=== PATIENT | female | born 1990 | race Two or more races ===

== ENCOUNTER 2025-02-26 09:17 | Emergency (ER) | payer MEDICAID, SELFPAY ==
[2025-02-26 09:27] VITALS: BP 114/74; PULSE 86; RESP 16; TEMP 37.2; O2SAT 98; BMI 27.6
--- NOTE | 2025-02-26 09:44 | XR_ITS ---
Examination: Pelvic ultrasound, transabdominal, complete Technique: Transabdominal ultrasound of the pelvis performed using grayscale imaging Date and time of exam: February 26, 2025 1033 hrs. Indications: Pelvic pain beginning one week ago Findings: Uterus 12.1 cm endometrial stripe 1.5 cm No uterine mass or intrauterine gestation Right ovary 2.9 cm arterial flow Left ovary 2.9 cm arterial flow Small bilateral ovarian follicles Impression: No uterine mass or intrauterine gestation Negative for ovarian torsion
--- NOTE | 2025-02-26 09:59 | PD.EDRME ---
Rapid Medical Screening Exam RME Arrival date/time: 02/26/25 09:17 34-year-old female presents to the Emergency Department today for complaints of pelvic pain Chief Complaint: Abdominal Pain Time Seen by Provider: 02/26/25 09:37 Vital signs: Vital Signs Temperature 99 F 02/26/25 09:27 Pulse Rate 86 02/26/25 09:27 Respiratory Rate 16 02/26/25 09:27 Blood Pressure 114/74 02/26/25 09:27 Pulse Oximetry (%) 98 02/26/25 09:27 Oxygen Delivery Method Room Air 02/26/25 09:27
[2025-02-26 10:23] LABS: Basophils % (Auto) 0 % (0-2.5); Eosinophils # (Auto) 0.2 Thou/mm3 (0.0-0.5); Eosinophils % (Auto) 2 % (0-10); Hematocrit 43.2 % (36.0-46.0); Hemoglobin 14.6 g/dL (12.0-16.0); Immature Granulocytes % (Auto) 0 % (0-0); Immature Granulocytes Auto 0.01 Thou/mm3 (0.00-0.00); Lymphocytes # (Auto) 1.5 Thou/mm3 (1.0-4.8); Lymphocytes % (Auto) 24 % (10-50); Mean Corpuscular HGB Conc 33.8 g/dl (31.0-37.0); Mean Corpuscular Hemoglobin 31.7 pg (25.0-35.0); Mean Corpuscular Volume 94 fL (80-100); Monocytes # (Auto) 0.3 Thou/mm3 (0.0-0.8); Monocytes % (Auto) 5 % (0-12); Neutrophils # (Auto) 4.4 Thou/mm3 (1.8-7.7); Neutrophils % (Auto) 69 % (37-80); Nucleated Red Blood Cell % 0 /100 WBC (0); Platelet Count 230 Thou/mm3 (140-440); RDW Standard Deviation 42.5 fL (36.4-46.3); White Blood Count 6.4 Thou/mm3 (3.6-11.0)
[2025-02-26 10:41] LABS: Alanine Aminotransferase 29 U/L (10-49); Albumin, Serum 4.4 gm/dL (3.5-5.0); Albumin/Globulin Ratio 1.4 (1.2-2.2); Alkaline Phosphatase 95 U/L (46-116); Anion Gap 6 (7-16); Aspartate Amino Transferase 14 U/L (0-34); BUN/Creatinine Ratio 13 Ratio (12-20); Bilirubin,Total 0.5 mg/dL (0.3-1.2); Blood Urea Nitrogen 12 mg/dL (9-23); Calcium 9.8 mg/dL (8.3-10.6); Calcium (Corrected) 9.8 mg/dL (8.5-10.1); Carbon Dioxide 29.2 mMol/L (20.0-31.0); Chloride 109 mMol/L (98-107); Creatinine (Component) 0.9 mg/dL (0.6-1.3); Estimated Creatinine Clearance 91.1 mL/min (>60); Globulin 3.2 gm/dL (2.3-3.5); Glucose 145 mg/dL (74-106); Lipase 39 U/L (12-53); Osmolality,Calculated 289 (275-295); Potassium 3.5 mMol/L (3.4-5.1); Sodium 144 mMol/L (136-145); Total Protein 7.6 gm/dL (5.7-8.2); eGFR > 60 See Note
[2025-02-26 11:05] LABS: Collection Type, Urine Clean Catch
[2025-02-26 11:13] LABS: HCG Qualitative,Urine Negative
[2025-02-26 11:16] LABS: Bacteria,Urine Rare; Bilirubin,Urine Negative (Negative); Blood,Urine 3+ (Negative); Glucose, Urine Negative (Negative); Ketones,Urine Negative (Negative); Leukocyte Esterase,Urine Positive (Negative); Nitrite,Urine Negative (Negative); PH,Urine 6.5 (5.0-7.0); Protein,Urine 1+ (Neg - Trace); RBC,Urine 1033 /hpf (0-3); Specific Gravity,Urine 1.009 (1.001-1.035); Squamous Epithelial Cell,Urine 9 /hpf (0-5); Urobilinogen,Urine Negative mg/dL (0.0-1.0); WBC,Urine 23 /hpf (0-5)
[2025-02-26 11:18] LABS: Clarity,Urine Cloudy (Clear/Hazy); Color,Urine Lt-Red (Lt Yel-Yel); Culture Indicated,Urine Yes
[2025-02-26 11:50] VITALS: BP 148/90; PULSE 65; RESP 18; TEMP 37; O2SAT 99
[2025-02-26 13:19] VITALS: BP 139/96; PULSE 64; RESP 17; TEMP 36.7; O2SAT 98
--- NOTE | 2025-02-26 13:51 | PD.EDABDPN ---
ED Abdominal Pain RME/HPI General Chief Complaint: Abdominal Pain Stated complaint: ABD PAIN RADIATES TO BACK X 7 WEEK Time seen by provider: 02/26/25 09:37 Arrival date/time: 02/26/25 09:17 RME / HPI RME / HPI narrative: 34-year-old female presents to the Emergency Department today for complaints of pelvic pain this been ongoing for the last 7 weeks, getting worst for last 4 days with menstruation. Patient denies any dysuria denies any vomiting denies any fever denies any other complaints. Related Data Home Medications ?Medication ?Instructions ?Recorded ?Confirmed ferrous sulfate 325 mg (65 mg 325 mg PO QDAY 12/23/19 02/16/20 iron) tablet folic acid 0.8 mg capsule 0.8 mg PO QDAY 12/23/19 02/16/20 hydrocodone 5 mg-acetaminophen 325 1 tab PO Q6H PRN Pain 12/23/19 02/16/20 mg tablet ([place]) vitamins-iron fumarate 27 1 tab PO QDAY 12/23/19 02/16/20 mg iron-folic acid 0.8 mg tablet ( Vitamin) phenazopyridine 100 mg tablet 100 mg PO TID PRN BURNING 02/16/20 02/17/20 Previous Rx's ?Medication ?Instructions ?Recorded ketorolac 10 mg tablet 10 mg PO Q8H PRN pain 5 days #20 02/26/25 tabs Allergies Allergy/AdvReac Type Severity Reaction Status Date / Time No Known Allergies Allergy Verified 02/26/25 09:21 Review of Systems Review of Systems Narrative Review of Systems: Review of system reviewed and within normal limits except mentioned in HPI ED Exam Narrative Physical exam: VITAL SIGNS: Reviewed. GENERAL APPEARANCE: Alert and interactive, follows commands, no acute distress, HEAD AND FACE: Non-traumatic. ENT: PERRL, pink conjunctivitis, eyelid no trauma, Mucous membrane moist. NECK: Supple, nontender, no nuchal rigidity. CHEST: No tenderness, no crepitus, no paradoxical movement, no retractions. LUNGS: Clear, well ventilated, symmetric, no rales, no wheezing, no ronchi, no stridor, good breath sounds bilaterally. HEART: Regular rate, regular rhythm, no murmur, no gallops. ABDOMEN: Soft, positive bowel sounds, nondistended, no guarding, nontender, no rebound, no masses, RECTAL: Deferred. GENITAL: Deferred. NEUROLOGICAL: Gross motor function intact sensory function intact, Appropriate for age. MUSCULOSKELETAL: low back nontender, full range of motion. EXTREMITIES: Nontender, full range of motion. SKIN: Color pink, dry, no rash, no lacerations, no abrasions, no contusions. LYMPHATICS: Deferred. Course Quality Measures none Orders Category Date Time Status US pelvic complete Stat Exams 02/26/25 09:44 Completed CBC Stat Lab 02/26/25 10:09 Completed Comprehensive Metabolic Panel Stat Lab 02/26/25 10:09 Completed HCG Qualitative,Urine Stat Lab 02/26/25 10:58 Completed Lipase Stat Lab 02/26/25 10:09 Completed UA, C/S IF [Urinalysis, C/S if Indicated] Stat Lab 02/26/25 10:58 Completed Urine Culture Stat Lab 02/26/25 10:58 Received Vital Signs Vital signs: Vital Signs Temperature 99 F 02/26/25 09:27 Pulse Rate 86 02/26/25 09:27 Respiratory Rate 16 02/26/25 09:27 Blood Pressure 114/74 02/26/25 09:27 Pulse Oximetry (%) 98 02/26/25 09:27 Oxygen Delivery Method Room Air 02/26/25 09:27 Abdominal Pain [facility] Narrative [facility] Narrative:: 34-year-old female presents to the Emergency Department today for complaints of pelvic pain this been ongoing for the last 7 weeks, getting worst for last 4 days with menstruation. Patient denies any dysuria denies any vomiting denies any fever denies any other complaints. Patient's ultrasound of the pelvis came back unremarkable but workup also came back unremarkable except for hematuria as patient is having menstruation right now. Patient symptoms could be secondary to dysmenorrhea. Patient was advised to follow-up closely with PCP and for referral to [facility]. Patient agrees with the plan. Patient data External records reviewed:: None Clinical information provided by:: patient Social determinants that could affect healthcare access:: none Patient has the following chronic illnesses:: None How is presenting disease/condition affected by chronic disease/condition?: no chronic disease Evaluation data The following diagnostics were reviewed and interpreted by me:: lab results and radiology exam(s) Lab and/or radiology exams considered but not ordered:: None Interpretation Summary: See results MDM Medications / Prescriptions Medications or Prescriptions considered but not ordered:: None Medication administrations:: None Consultations Consultation(s) initiated? (list below): No Diagnosis Differential diagnosis abdominal pain: abdominal pain, constipation and other (Dysmenorrhea) Most likely diagnosis given after review of the tests above:: Dysmenorrhea Admission Indicated Admission indicated?: not indicated Admission Request Was there a request for admission?: No Disposition Plan Disposition Plan: Discharge Discharge Attestation Discharge Attestation: The patient was given an opportunity to ask questions and understood the discharge instructions. Discharge instructions specifically effects, indications for sooner follow up or return to the emergency department, and the expected course of current diagnosis. Patient condition: Stable Discharge Plan Plan Patient Disposition: HOME (Self Care) Disposition Comment: stable Prescriptions/Referrals Prescriptions/Med Rec: New ketorolac 10 mg tablet 10 mg PO Q8H PRN (Reason: pain) 5 Days Qty: 20 0RF No Action hydrocodone-acetaminophen [[place]] 5-325 mg Tablet 1 tab PO Q6H PRN (Reason: Pain) ferrous sulfate 325 mg (65 mg iron) Tablet 325 mg PO QDAY Vitamin 27 mg iron- 0.8 mg Tablet 1 tab PO QDAY folic acid 0.8 mg Capsule 0.8 mg PO QDAY phenazopyridine 100 mg Tablet 100 mg PO TID PRN (Reason: BURNING) Rx Instructions: DYSURIA Referrals: Rossana Benitez FNP [Primary Care Provider] - In 1 week Problem List Clinical Impression: Dysmenorrhea Patient/Caregiver Discharge Instructions Discharge Activity: activity as tolerated Education Materials: ED MENSTRUAL CRAMPING Additional Instructions: Thank you for the opportunity for serving you today. You are stable for discharged . You are advised to: Follow-up with your PCP in 1 to 2 days and as per referral to [facility] Return to ED for worsening of symptoms Increase oral fluids Take medication as prescribed Print Language: Azeri Stand Alone Forms: Donna Award Info., Patient Portal Info Letter
== END 2025-02-26 14:05 | disposition home or self-care (01) ==
PROVIDERS: Nurse Practitioner Primary Care; Emergency Provider Emergency Medicine; PCP Nurse Practitioner Family
DX: N94.6 Dysmenorrhea, unspecified (principal)
CPT/HCPCS: 36415; 76856; 80053; 81001; 81025; 83690; 85025; 87077; 87086; 87186; 99284

== ENCOUNTER 2025-06-14 16:03 | Emergency (ER) | payer MEDICAID, SELFPAY ==
[2025-06-14 16:08] VITALS: BMI 28.3
[2025-06-14 16:57] VITALS: BP 112/75; PULSE 84; RESP 18; TEMP 36.8; O2SAT 99
--- NOTE | 2025-06-14 17:29 | XR_ITS ---
Examination: Complete OB ultrasound, less than 14 weeks, transabdominal Date and time of exam: June 14, 2025, 1739 hours INDICATIONS: Pelvic pain beginning 2 days ago Technique: Obstetrical ultrasound images less than 14 weeks performed via transabdominal imaging Findings: Uterus 12.4 cm CRL 8.8 cm corresponds to 14 weeks 5 day gestational age No cardiac motion Right ovary 2.9 cm arterial flow Left ovary obscured by bowel gas IMPRESSION: demise
--- NOTE | 2025-06-14 17:39 | EDNOTE_ITS ---
ED Abdominal Pain RME/HPI General Chief Complaint: Abdominal Pain Stated complaint: ABD/BACK PAIN; PREG W/ DEMISE Time seen by provider: 06/14/25 17:07 Arrival date/time: 06/14/25 16:03 RME / HPI RME / HPI narrative: 3 para 2, 34-year-old female presents to the ED with a complaint of lower left abdominal pain and lower back pain bilaterally. She states she is between 2 to 3 months and at her last doctor's appointment, during an ultrasound, she was told there was no heartbeat. She presents to the ED with these new symptoms that began last night. She states the pain is constant but worse when she lays flat in bed. She denies any spotting or bleeding. She denies any recent illness with fever, chills, cough, upper respiratory complaints, nausea or vomiting, diarrhea or constipation. She denies any dysu edda or frequency. Patient's doctor is Dr. Soto at [facility] in [place]. She is waiting for a call from Dr. Singleton to schedule an appointment for her fetus removal. She states they were supposed to call her today or tomorrow. Related Data Home Medications ?Medication ?Instructions ?Recorded ?Confirmed ferrous sulfate 325 mg (65 mg 325 mg PO QDAY 12/23/19 02/16/20 iron) tablet folic acid 0.8 mg capsule 0.8 mg PO QDAY 12/23/1906/29 hydrocodone 5 mg-acetaminophen 325 1 tab PO Q6H PRN [place] in 12/23/19 02/16/20 mg tablet ([place]) vitamins-iron fumarate 27 1 tab PO QDAY 12/2302/16/20 mg iron-folic acid 0.8 mg tablet ( Vitamin) phenazopyridine 100 mg tablet 100 mg PO TID PRN BURNIN G 02/16/20 02/17/20 Allergies Allergy/AdvReac Type Severity Reaction Status Date / Time No Known Allergies Allergy Verified 06/14/25 16:12 Review of Systems Review of Systems Systems Reviewed: All systems reviewed, normal except as documented Past Medical History Past Medical History NEUROLOGIC: Negative Neurological Disorders or Seizures CARDIAC: Negative Cardiac Disorders or Congestive Heart Failure RESPIRATORY: Negative Chronic Obstructive Pulmonary Disease (COPD) GASTROINTESTINAL: Negative Gastrointestinal Disorders GENITOURINARY: Positive Genitourinary Disorders and Kidney Stones (2020); Negative Renal Disease REPRODUCTIVE: Positive Previous Pregnancies (2); Negative Pelvic Inflammatory Disease MUSCULOSKELETAL: Negative Musculoskeletal Disorders ENDOCRINE: Negative Endocrine Disorders, Diabetes Mellitus Type 1 or Diabetes Mellitus Type 2 HEMATOLOGIC: Negative Blood Disorders OTHER HISTORY: Positive Hospitalization (CHILDBIRTH); Negative Autoimmune Disease, Down Syndrome, Developmental Delay, Shingles, Falls, Blood Transfusions, Blood Transfusion Reaction, Anesthesia Reactions, Organ Transplant, Chemotherapy, Radiation Therapy, Hyperbaric Therapy, MRSA, VRSA, Vancomycin-Resistant Enterococci, Chicken Pox, Measles, Mumps, Clostridium Difficile or Cancer Family History FAMILY HISTORY: Negative Family Psychiatric Problems, Family Respiratory Disorders, Family Cardiac Disorders, Family Gastrointestinal Problems, Family Cancer, Family Surgery or Family Anesthesia Reaction Surgical History SURGICAL: Positive Section (1); Negative Organ Transplant Social History SMOKING STATUS: Never smoker ED Exam Narrative Physical exam: A&O, afebrile and non-toxic appearing 34-year-old female, no acute distress. Lung sounds are clear, RRR, Abdomen is soft, mild left lower quadrant tenderness, non-distended. Positive bilateral CVA tenderness. Moves all extremities well.. Course Course Course Narrative: Vital signs are stable with a blood pressure of 112/75, pulse 84, respirations 18 and nonlabored, temperature 98.2, O2 sat 99% on room air. CBC reveals normal white count, normal H&H and normal platelets. Beta-hCG is c urrently at 14,079. CMP reveals normal electrolytes normal renal function and normal liver function. Urinalysis is negative for infection however there is trace blood and positive leukocyte esterase with 4 RBCs, 4 WBCs, 3 epithelial cells and no bacteria. Blood bank tests reveal a positive blood with negative antibody screen. ultrasound reveals an irregular intrauterine gestational sac with a single fetus, gestational age 14 weeks and 5 days. No cardiac activity is demonstrated. Suggestive of demise. Quality Measures none Orders Category Date Time Status US OB <= 14 weeks fetus Stat Exams 06/14/25 17:29 Taken Beta HCG,Quantitative Stat Lab 06/14/25 18:06 Completed CBC Stat Lab 06/14/25 18:06 Completed CMP [Comprehensive Metabolic Panel] Stat Lab 06/14/25 18:06 Completed Type and Screen Stat Lab 06/14/25 18:06 Completed UA, C/S IF [Urinalysis, C/S if Indicated] Stat Lab 06/14/25 18:30 Completed Acetaminophen Tab [Tylenol ES Tab] Med 06/14/25 22:10 Once 1,000 mg PO X1 ONE Vital Signs Vital signs: Vital Signs Temperature 98.2 F 06/14/25 16:57 Pulse Rate 84 06/14/25 16:57 Respiratory Rate 18 06/14/25 16:57 Blood Pressure 112/75 06/14/25 16:57 Pulse Oximetry (%) 99 06/14/25 16:57 Oxygen Delivery Method Room Air 06/14/25 16:57 Abdominal Pain MDM MDM Narrative MDM Narrative:: Symptoms, exam and diagnostic studies are consistent with: demise with a current quant of 14,079. No evidence of infection in either blood or urine. Patient was discharged home in stable condition. Patient/family advised to follow-up with their PCP in 24-48 hours. Patient was advised if she does not hear from her [employer] by 4 PM tomorrow, she should call their office to find out the timing of her appointment. Strongly encouraged to return to the ED for any new or worsening symptoms. Including heavy vaginal bleeding, cramping, fever or chills, nausea or vomiting. Patient data External records reviewed:: [facility] previous records Clinical information provided by:: patient Social determinants that could affect healthcare access:: none Patient has the following chronic illnesses:: N/A How is presenting disease/condition affected by chronic disease/condition?: no chronic disease Evaluation data The following diagnostics were reviewed and interpreted by me:: lab results and radiology exam(s) Lab and/or radiology exams considered but not ordered:: N/A Interpretation Summary: As noted above Medications / Prescriptions Medications or Prescriptions considered but not ordered:: N/A Medication administrations:: Medication Administration History Acetaminophen (Acetaminophen 500 Mg Tablet) 1,000 mg PO X1 ONE Stop: 06/14/25 22:11 As noted above Consultations Consultation(s) initiated? (list below): No Diagnosis Differential diagnosis abdominal pain: abdominal pain and other (Threatened miscarriage, miscarriage, demise) Most likely diagnosis given after review of the tests above:: demise without evidence of bleeding or infection. Admission Indicated Admission indicated?: not indicated Explain why admission is indicated or not indicated:: Patient is stable for discharge Admission Request Was there a request for admission?: No Admission Attestation Admission request attestation: N/A Disposition Plan Disposition Plan: Discharge Discharge Attestation Discharge Attestation: The patient and all family members were given an opportunity to ask questions and understood the discharge instructions. Discharge instructions specifically effects, indications for sooner follow up or return to the emergency department, and the expected course of current diagnosis. Patient condition: Stable Discharge Plan Plan Patient Disposition: HOME (Self Care) Discharge Disposition comment: Stable Prescriptions/Referrals Prescriptions/Med Rec: No Action hydrocodone-acetaminophen [[place]] 5-325 mg Tablet 1 tab PO Q6H PRN (Reason: Pain) ferrous sulfate 325 mg (65 mg iron) Tablet 325 mg PO QDAY Vitamin 27 mg iron- 0.8 mg Tablet 1 tab PO QDAY folic acid 0.8 mg Capsule 0.8 mg PO QDAY phenazopyridine 100 mg Tablet 100 mg PO TID PRN (Reason: BURNING) Rx Instructions: DYSURIA Referrals: No Primary/Family,Physician [Primary Care Provider] - In 1 week Problem List Clinical Impression: demise before 20 weeks with retention of fetus Patient/Caregiver Discharge Instructions Education Materials: Discharge Instructions for ..., ED Missed Miscarriage Additional Instructions: Trevor un seguimiento con ko medico de atencion primaria en 24 a 48 horas. Regresar al departamento de emergencias por cualquier sintoma nuevo o que empeore. Print Language: Thai Stand Alone Forms: Donna Award Info., Patient Portal Info Letter PA/[employer] CLE[employer] AND TRANSFER OPERATOR Supervising Physician PA/GRAIN CLEANER AND TRANSFER OPERATOR Supervising Physician: Dr Doan
[2025-06-14 18:16] LABS: Basophils # (Auto) 0.0 Thou/mm3 (0.0-0.2); Basophils % (Auto) 0 % (0-2.5); Eosinophils # (Auto) 0.2 Thou/mm3 (0.0-0.5); Eosinophils % (Auto) 2 % (0-10); Hematocrit 38.9 % (36.0-46.0); Hemoglobin 13.4 g/dL (12.0-16.0); Immature Granulocytes Auto 0.02 Thou/mm3 (0.00-0.00); Lymphocytes # (Auto) 1.9 Thou/mm3 (1.0-4.8); Lymphocytes % (Auto) 20 % (10-50); Mean Corpuscular HGB Conc 34.4 g/dl (31.0-37.0); Mean Corpuscular Hemoglobin 32.8 pg (25.0-35.0); Mean Corpuscular Volume 95 fL (80-100); Monocytes # (Auto) 0.7 Thou/mm3 (0.0-0.8); Monocytes % (Auto) 7 % (0-12); Neutrophils # (Auto) 6.6 Thou/mm3 (1.8-7.7); Neutrophils % (Auto) 70 % (37-80); Nucleated Red Blood Cell # 0.00 Thou/mm3 (0.00-0.00); Nucleated Red Blood Cell % 0 /100 WBC (0); Platelet Count 232 Thou/mm3 (140-440); RDW Standard Deviation 45.5 fL (36.4-46.3); Red Blood Count 4.08 Miln/mm3 (4.00-5.20); White Blood Count 9.4 Thou/mm3 (3.6-11.0)
[2025-06-14 19:04] LABS: Collection Type, Urine Clean Catch
[2025-06-14 19:05] LABS: Alanine Aminotransferase 23 U/L (10-49); Albumin, Serum 3.9 gm/dL (3.5-5.0); Albumin/Globulin Ratio 1.4 (1.2-2.2); Alkaline Phosphatase 64 U/L (46-116); Anion Gap 9 (7-16); Aspartate Amino Transferase 12 U/L (0-34); BUN/Creatinine Ratio 10 Ratio (12-20); Bilirubin,Total 0.4 mg/dL (0.3-1.2); Blood Urea Nitrogen 9 mg/dL (9-23); Calcium 9.2 mg/dL (8.3-10.6); Calcium (Corrected) 9.3 mg/dL (8.5-10.1); Carbon Dioxide 25.3 mMol/L (20.0-31.0); Chloride 106 mMol/L (98-107); Creatinine (Component) 0.9 mg/dL (0.6-1.3); Estimated Creatinine Clearance 79.2 mL/min (>60); Globulin 2.7 gm/dL (2.3-3.5); Glucose 79 mg/dL (74-106); Osmolality,Calculated 277 (275-295); Potassium 3.9 mMol/L (3.4-5.1); Sodium 140 mMol/L (136-145); Total Protein 6.6 gm/dL (5.7-8.2); eGFR > 60 See Note
[2025-06-14 19:10] LABS: Bilirubin,Urine Negative (Negative); Blood,Urine Trace (Negative); Clarity,Urine Clear (Clear/Hazy); Color,Urine Lt-Yellow (Lt Yel-Yel); Culture Indicated,Urine Not Indicated; Glucose, Urine Negative (Negative); Ketones,Urine Negative (Negative); Leukocyte Esterase,Urine Positive (Negative); Nitrite,Urine Negative (Negative); PH,Urine 6.5 (5.0-7.0); Protein,Urine Negative (Neg - Trace); RBC,Urine 4 /hpf (0-3); Specific Gravity,Urine 1.017 (1.001-1.035); Squamous Epithelial Cell,Urine 3 /hpf (0-5); Urobilinogen,Urine Negative mg/dL (0.0-1.0); WBC,Urine 4 /hpf (0-5)
[2025-06-14 19:15] LABS: Beta HCG,Quantitative 14079 mIU/mL (<5.0)
--- NOTE | 2025-06-14 21:32 | PRELIM_ITS ---
Obstetric ultrasound. June 14, 2025 at 1739 hours Clinical history: , cramping, pain. Technique: Real-time transabdominal ultrasound was performed using Duplex scanning including arterial inflow, venous outflow, color and spectral Doppler analysis. Comparison: No prior study is available for comparison. Findings: There is an irregular intrauterine gestational sac with a single fetus of mean gestational age 14 weeks and 5 days. No cardiac activity is demonstrated. The placenta is anterior in location. The uterus measures 12.4 x 5.4 x 14.3 cm. The right ovary measures 2.9 x 1.6 x 1.9 cm and demonstrates color flow and spectral waveforms on Doppler evaluation. The left ovary is not visualized due to bowel gas. There is no free fluid in the pelvis. Impression: Findings suggestive of intrauterine demise. Recommend clinical correlation. Other findings as described above. Discussion Details: Results verbally communicated to : Dr Alexandra at 09:19 PM 06/14/2025 Report Electronically Signed By: Rupert Eugene 06/14/2025 9:32:33 PM [EST]
[2025-06-14] MEDS: ACETAMINOPHEN 500 MG TABLET 1000 MG PO (22:29)
[2025-06-14 22:30] VITALS: BP 116/70; PULSE 72; RESP 18; TEMP 36.7; O2SAT 98
== END 2025-06-14 22:31 | disposition home or self-care (01) ==
PROVIDERS: Physician Assistant; Emergency Provider Emergency Medicine
DX: O02.1 Missed abortion (principal)
CPT/HCPCS: 36415; 76801; 80053; 81001; 84702; 85025; 86850; 86900; 86901; 99283; A9270

== ENCOUNTER 2025-06-17 09:46 | Outpatient (AMB) | payer MEDICAID, SELFPAY ==
[2025-06-17 10:39] VITALS: BP 115/75; PULSE 81; RESP 17; TEMP 36.9; O2SAT 97; BMI 30.8
--- NOTE | 2025-06-17 10:39 | OBCLNT_ITS ---
Vital Signs 06/17/25 10:39 Height 1.55 m Height Method Stated Weight 74.106 kg Weight Measurement Method Standing Scale BMI 30.8 BP 115/75 Blood Pressure Source Automatic Cuff Blood Pressure Location Right Upper Arm Position Sitting Respiration 17 Pulse 81 Pulse Source Monitor Temp 98.5 F Temp Source Temporal Artery Scan Pulse Oximetry (%) 97 Oxygen Delivery Method Room Air Allergies/Home Meds Allergies & Medications Allergies No Known Allergies Allergy (Verified 06/17/25 12:19) Medication Reconciliation misoprostol 200 mcg tablet 800 mcg (4 x 200 mcg) PO .once 1 day #4 tabs 06/17/25 [Rx] Intake Visit Data Collection New Patient or Established: Established Patient (seen at [facility] within 3 years) 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 for Visit:: 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 1. Little interest or pleasure in doing things: not at all 2. Feeling down, depressed, or hopeless: not at all Total score: 0 PHQ-9 3. Trouble falling or staying asleep, or sleeping too much: Not at all 4. Feeling tired or having little energy: Not at all 5. Poor appetite or overeating: Not at all 6. Feeling bad about yourself - or that you are a failure or have let yourself or your family down: Not at all 7. Trouble concentrating on things, such as reading the newspaper or watching television: Not at all 8. Moving or speaking so slowly that other people could have noticed? - Or the opposite - being so fidgety or restless that you have been moving around a lot more than usual: not at all 9. Thoughts that you would be better off or of hurting yourself in some way: Not at all Total score: 0 If you checked off any problems, how difficult have these problems made it for you to do your work, take care of things at home, or get along with other people?: not difficult at all Source: Developed by Drs. Guillermo Huggins, Roya Ibarra, Norberto Tapia and colleagues, with an educational wallace from [employer]. 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 Soto for evaluation of demise. The patient has undergone ultrasounds at both Dr. Soto's office and the ER, which confirmed demise at approximately 14- 15 weeks gestation. The ultrasound performed in the ER showed a crown-rump length corresponding to 14 weeks and 5 days with no cardiac motion. A subsequent ultrasound at [facility] corroborated these findings, measuring the fetus at 15 weeks and 3 days, also with no heart tones. The patient has been informed that the baby has had no heartbeat for the last 3 weeks. Given the gestational age and confirmed demise, intervention is necessary. The patient has been counseled on treatment options, including medical management with hospital admission or surgical management via dilation and curettage (D&C). The patient expressed concern about potential harm to her uterus from the procedure, which was addressed. Obstetric History: - Current : demise at approximately 15 weeks gestation - Ultrasound in ER: demise, crown-rump length corresponding to 14 weeks and 5 days, no cardiac motion - Ultrasound at [facility] imaging: demise, gestational age 15 weeks and 3 days, no heart tones Exam General General Appearance: alert, in no apparent distress and healthy appearing Head Head exam: atraumatic Neck Neck exam: Present normal inspection and trachea midline Chest Chest inspection: Present normal inspection and symmetric chest wall rise External exam: Present normal external exam; Absent tenderness Neuro Neurological exam: Present oriented X3 Psych Psychiatric exam: Present normal affect and normal mood Office Procedures OB Clinic LOC & Office Proc's Nursing/Assessment Patient Status: Established Patient OB Clinic Nursing Assessment: Medication Reconciliation, Update PMH in EMR and Vital Signs OB Clinic Coordination of Care: Complex Care and Chronic Disease 1-5, Consent,records obtained, informed consent, Education Simp Pt/Fam, Results/Orders obtained and Staff clarify orders Established Patient Charge Established Patient Point Assignment: 90 Established Patient Point Charge: EP Level 3 (80-115) Assessment & Plan Diagnosis / Problem List (1) demise before 20 weeks with retention of fetus: Status: Acute (2) Second trimester : Status: Acute Plan demise at 15 weeks gestation Assessment: Patient was referred by Dr. Soto after ultrasounds at his office and the ER confirmed demise. ER ultrasound showed crown-rump length corresponding to 14 weeks and 5 days with no cardiac motion. [facility] imaging ultrasound corroborated findings, measuring 15 weeks and 3 days with no heart tones. The fetus has had no heartbeat for approximately 3 weeks. Given the gestational age of over 12 weeks, allowing for spontaneous miscarriage at home is deemed too risky due to potential for significant bleeding. Plan: - Recommend dilation and curettage (D&C) procedure - Explained procedure: vaginal surgery with no abdominal incisions - Informed patient it will not harm the uterus - Submit authorization for the procedure - Tentatively schedule procedure for Friday or Friday of next week - Instruct patient to go to ER if she develops fever, bleeding, or feels sick - Complete necessary paperwork for procedure authorization - Call patient on Friday or Friday with further details and scheduling info rmation
== END 2025-06-17 10:49 | disposition home or self-care (01) ==
LOC: HODSOBC 09:46
PROVIDERS: Supervising Provider Obstetrics & Gynecology; Visit Provider Obstetrics & Gynecology
DX: O02.1 Missed abortion (principal)
CPT/HCPCS: 99213; G0463

== ENCOUNTER 2025-06-21 08:16 | Inpatient (IN) | payer MEDICAID, SELFPAY ==
[2025-06-21] VITALS (43 sets, daily range): BP systolic 101–136; BP diastolic 57–85; PULSE 62–98; RESP 15–20; TEMP 36.8–37.6; O2SAT 95–100; BMI 31.1
[2025-06-21 10:49] LABS: Amphetamine/Metham Scrn,Ur OB Negative (Negative); Benzoylecgonine Screen, Ur OB Negative (Negative); Opiate Screen,Urine OB Negative (Negative); THC Screen,Urine OB Negative (Negative)
[2025-06-21 11:03] LABS: Basophils # (Auto) 0.0 Thou/mm3 (0.0-0.2); Basophils % (Auto) 0 % (0-2.5); Eosinophils # (Auto) 0.1 Thou/mm3 (0.0-0.5); Eosinophils % (Auto) 2 % (0-10); Hematocrit 40.7 % (36.0-46.0); Hemoglobin 14.2 g/dL (12.0-16.0); Immature Granulocytes Auto 0.02 Thou/mm3 (0.00-0.00); Lymphocytes # (Auto) 1.6 Thou/mm3 (1.0-4.8); Lymphocytes % (Auto) 23 % (10-50); Mean Corpuscular HGB Conc 34.9 g/dl (31.0-37.0); Mean Corpuscular Hemoglobin 33.4 pg (25.0-35.0); Mean Corpuscular Volume 96 fL (80-100); Monocytes # (Auto) 0.4 Thou/mm3 (0.0-0.8); Monocytes % (Auto) 6 % (0-12); Neutrophils # (Auto) 4.9 Thou/mm3 (1.8-7.7); Neutrophils % (Auto) 69 % (37-80); Nucleated Red Blood Cell # 0.00 Thou/mm3 (0.00-0.00); Nucleated Red Blood Cell % 0 /100 WBC (0); Platelet Count 218 Thou/mm3 (140-440); RDW Standard Deviation 46.6 fL (36.4-46.3); Red Blood Count 4.25 Miln/mm3 (4.00-5.20); White Blood Count 7.1 Thou/mm3 (3.6-11.0)
[2025-06-21 11:12] LABS: INR 1.0 (0.9-1.3); Partial Thromboplastin Time 27.5 Seconds (22.0-36.0); Prothrombin Time 10.8 Seconds (9.0-12.2)
[2025-06-21 11:25] LABS: Rubella, IgG Antibody Reactive (Immune)
[2025-06-21] MEDS: RINGERS LACTATED 1000 ML 1,000 ML 100 ML IV (15:18)
[2025-06-21] MEDS: fentaNYL CIT INJ 50 mCg/ML AMP 2ML 100 MCG IV (16:14)
--- NOTE | 2025-06-21 17:27 | PD.LDHP ---
Documentation for date of: 06/21/25 OB Labor/Induct. HPI History of Present Illness Chief complaint: demise 15w : 3 Para: 2 Term pregnancies: 2 Living children: 2 History of sections: Yes (2017) History of : No Date of last menstrual period: 02/26/25 JENNY: 12/14/25 Gestational age based on last menstrual period: 16 History of present illness: 34-year-old 3 para 2-0-0-2 at 16 weeks presented to labor and delivery for induction of labor due to demise with gestation measuring 14 weeks and 5 days and she is currently 16 weeks estimated gestational age. Patient was referred to us from [facility] from Dr. Soto who was her primary MATERIALS TECHNICIAN demise was confirmed through ultrasound in the emergency room. Labs Labs: Unknown: RPR, Hepatitis B, Rubella Titre, HIV, Chlamydia, Gonorrhea, Herpes Type 1, Herpes Type 2, Group Beta Strep and Covid-19 Past Medical History Surgical History SURGICAL: Positive Section (2017) Meds Home Medications and Allergies Home Medications ?Medication ?Instructions ?Recorded ?Confirmed ?Type No Known Home Medications 06/21/25 06/21/25 History Allergies Allergy/AdvReac Type Severity Reaction Status Date / Time No Known Allergies Allergy Verified 06/21/25 12:28 OB Exam Physical Exam Vital signs: Temp Pulse Resp BP O2 Del Method 98.4 F 83 16 115/62 Room Air 06/21/25 12:33 06/21/25 16:56 06/21/25 12:33 06/21/25 16:56 06/21/25 08:19 Constitutional Constitutional: no acute distress Routine HEENT Exam Head: Present normocephalic and atraumatic Eye: Present EOMI and PERRL ENT: Present mucous membranes moist Routine Neck Exam Neck: Present supple and trachea midline Routine Cardiovascular Exam Cardiovascular: Present RRR Routine Abdominal Exam Abdominal: Present soft and normoactive bowel sounds Routine Extremities Exam Extremities: Present full ROM Routine Skin Exam Skin: Present intact, dry and warm Routine Neurological Exam Neurological: Present alert, oriented X3 and CN II-XII intact Routine Psychiatric Exam Psychiatric: Present normal affect and normal thought process OB Results Labs 06/21/25 10:05 Labs: Short CBC 06/21/25 Range/Units 10:05 WBC 7.1 (3.6-11.0) Thou/mm3 Hgb 14.2 (12.0-16.0) g/dL Hct 40.7 (36.0-46.0) % Plt Count 218 (140-440) Thou/mm3 OB Assessment & Plan Assessment and Plan (1) demise before 20 weeks with retention of fetus: Status: Acute Assessment and plan: Admit to inpatient status for induction of labor IV access, CBC, type and screen Induction as per [facility] protocol for second trimester, 400 mcg misoprostol every 4 hours transvaginally Expectant management
--- NOTE | 2025-06-21 17:31 | PD.GYNPROC ---
Operative Note - CHAIR FRAME BUILDER Procedure Date of procedure: 06/21/25 Procedure Performed: Delivery of 15-week demise Indication: 34-year-old 3 para 2 at 15 weeks with demise confirmed through ultrasound Anesthesia type: None Procedure description: Patient received 3 doses of vaginal misoprostol. Upon placing a self-retaining speculum parts were noted in the vagina. They were gently removed with gentle traction. The umbilical cord was divided. The cervix clamped down and neither the placenta nor the cord could be traced. The fetus was handed over to the nurse. At this time due to retained placenta patient was consented to proceed with a D&C to remove the placenta. Estimated blood loss (ml): 25 Complications: none Diagnosis Discharge Diagnosis (1) demise before 20 weeks with retention of fetus: Status: Acute Problem List Completed Was Problem List Reviewed/Reconciled?: Yes
[2025-06-21] MEDS: ceFAZolin/D5W 2 GM IV 2 GM/100 ML BAG IV (18:03)
--- NOTE | 2025-06-21 19:08 | PD.GYNPROC ---
Operative Note - INTENSIVE CARE AMBULANCE PARAMEDIC Procedure Date of procedure: 06/21/25 Procedure Performed: Manual removal of placenta with suction D&C Placement of Bakri uterine balloon Indication: 34-year-old 3 para 2 with demise at 16 weeks Retained placenta status post delivery of fetus Anesthesia type: General Procedure description: Informed consent was obtained and the patient was taken to the operating room. Identity was confirmed by double identifiers and she was placed on the operating table. General anesthesia was administered and patient was positioned in the dorsolithotomy position. The perineum was prepped in the usual sterile fashion and sterile drapes were applied. A timeout procedure was completed. A self-retaining speculum was placed and the cervix was visualized. The anterior lip was grasped using atraumatic tenaculum and placed under traction. Placental edge was noted at the cervical os and a ring forcep was used to remove as much of placental tissue as possible. Gentle curettage was now performed with a [employer] curette. 14 mm suction tip was now used to make multiple gentle passes to remove remaining placental tissue. After completion of the procedure continued brisk bleeding was noted. A Bakri uterine tamponade balloon was placed and inflated with 300 cc of sterile water. It was connected to a Urovac. A Bonner catheter was also placed. The patient's perineum was now thoroughly cleaned. All instruments were withdrawn. Patient was undraped, taken out of lithotomy and general anesthesia was reversed. She was now taken to the recovery room in a stable and awake condition. Patient tolerated the entire procedure well. No acute complications were encountered. Estimated blood loss (ml): 250 Complications: none Surgical staff Operation Date: 06/21/25 18:45 <No data on this case meets the specified criteria> Diagnosis Discharge Diagnosis (1) demise before 20 weeks with retention of fetus: Status: Acute (2) Retained placenta with delivery, with complication: Status: Acute (3) hemorrhage: Status: Acute Problem List Completed Was Problem List Reviewed/Reconciled?: Yes
--- NOTE | 2025-06-21 19:53 | SUR.OPER ---
This RN pulled IM Methergine 0.2mg from pyxis as ordered by Dr. Triplett for Dr. Velazquez anesthesiologist to administer into left upper arm.
[2025-06-21] MEDS: RINGERS LACTATED 1000 ML 1,000 ML 125 ML IV (20:21)
[2025-06-21] MEDS: HYDROmorphone INJ 2 MG/ML VIAL IVP (20:21)
[2025-06-22 00:31] VITALS: BP 108/69; PULSE 63; RESP 18; TEMP 36.6; O2SAT 97
[2025-06-22 04:07] VITALS: BP 99/61; PULSE 66; RESP 16; TEMP 36.7; O2SAT 97
[2025-06-22] MEDS: RINGERS LACTATED 1000 ML 1,000 ML 125 ML IV (04:47)
--- NOTE | 2025-06-22 06:11 | PC.NURSE ---
Pharmacy verified it's okay to hang the 0600H dose of Ancef.
[2025-06-22 06:17] LABS: Basophils # (Auto) 0.0 Thou/mm3 (0.0-0.2); Basophils % (Auto) 0 % (0-2.5); Eosinophils # (Auto) 0.0 Thou/mm3 (0.0-0.5); Eosinophils % (Auto) 0 % (0-10); Hematocrit 37.9 % (36.0-46.0); Hemoglobin 13.1 g/dL (12.0-16.0); Immature Granulocytes Auto 0.06 Thou/mm3 (0.00-0.00); Lymphocytes # (Auto) 1.4 Thou/mm3 (1.0-4.8); Lymphocytes % (Auto) 11 % (10-50); Mean Corpuscular HGB Conc 34.6 g/dl (31.0-37.0); Mean Corpuscular Hemoglobin 32.8 pg (25.0-35.0); Mean Corpuscular Volume 95 fL (80-100); Monocytes # (Auto) 0.7 Thou/mm3 (0.0-0.8); Monocytes % (Auto) 5 % (0-12); Neutrophils # (Auto) 11.1 Thou/mm3 (1.8-7.7); Neutrophils % (Auto) 84 % (37-80); Nucleated Red Blood Cell # 0.00 Thou/mm3 (0.00-0.00); Nucleated Red Blood Cell % 0 /100 WBC (0); Platelet Count 190 Thou/mm3 (140-440); RDW Standard Deviation 44.6 fL (36.4-46.3); Red Blood Count 3.99 Miln/mm3 (4.00-5.20); White Blood Count 13.3 Thou/mm3 (3.6-11.0)
[2025-06-22 06:27] LABS: INR 1.0 (0.9-1.3); Partial Thromboplastin Time 27.4 Seconds (22.0-36.0); Prothrombin Time 11.0 Seconds (9.0-12.2)
[2025-06-22 07:08] VITALS: BP 104/67; PULSE 97; RESP 16; TEMP 36.8; O2SAT 97
[2025-06-22] MEDS: KETOROLAC INJ 30 MG/ML VIAL IVP (07:50)
--- NOTE | 2025-06-22 08:02 | ESPR_ITS ---
Subjective Subjective Interval history: The patient is a 34-year-old -0-1-2 status post vaginal delivery of 15-week demise followed by a trip to the OR to remove the placenta with D&C followed by placement of Bakri balloon during that surgery. This surgery was completed around 6 PM last night. Today the patient is resting comfortably eating breakfast. She would like the back root balloon removed as she states she is cramping quite a bit. Her predelivery hemoglobin was 13.4 postdelivery hemoglobin 14.2 vital signs are stable I did consult with Dr. Triplett to remove the Bakri balloon now if she is ambulating later and with adequate pain control she can be discharged home. Exam Vital Signs Temp Pulse Resp BP Pulse Ox O2 Del Method 98.2 F 97 16 104/67 97 Room Air 06/22/25 07:08 06/22/25 07:08 06/22/25 07:08 06/22/25 07:08 06/22/25 07:08 06/22/25 07:08 Narrative Exam Patient is alert and oriented x 3 stating she is cramping from the back of a balloon otherwise in no apparent distress Objective Labs 06/22/25 05:24 Labs: Laboratory Results - last 24 hr 06/21/25 06/21/25 06/22/25 10:05 10:15 05:24 WBC 7.1 13.3 H D RBC 4.25 3.99 L Hgb 14.2 13.1 Hct 40.7 37.9 MCV 96 95 MCH 33.4 32.8 MCHC 34.9 34.6 RDW Std Deviation 46.6 H 44.6 Plt Count 218 190 Neut % (Auto) 69 84 H Lymph % (Auto) 23 11 [place] % (Auto) 6 5 Eos % (Auto) 2 0 Baso % (Auto) 0 0 Neut # (Auto) 4.9 11.1 H Lymph # (Auto) 1.6 1.4 [place] # (Auto) 0.4 0.7 Eos # (Auto) 0.1 0.0 Baso # (Auto) 0.0 0.0 Immature Gran # (Auto) 0.02 H 0.06 H Absolute Nucleated RBC 0.00 0.00 Immature Gran % 0 1 H Nucleated RBC % 0 0 PT 10.8 11.0 INR 1.0 1.0 APTT 27.5 27.4 Urine Opiates Screen Negative U Amphetamin/Meth Scrn Negative U Cocaine Metab Screen Negative U Marijuana (THC) Screen Negative Rubella IgG Antibody Reactive (Immune) Blood Type A Positive Antibody Screen NEGATIVE Blood Bank Wristband ID Yes Assessment & Plan Problem List (1) demise before 20 weeks with retention of fetus: Status: Inactive (2) Retained placenta with delivery, with complication: Problem details: Status post manual removal of placenta with curettage by Dr. Triplett. Postop day #1. Status: Acute (3) hemorrhage: Problem details: Patient has a bakri in place. She is stable. Will remove the Bakri balloon and have her ambulate take a shower see how she is doing if she is stable she will be discharged later today. Status: Acute Time Spent With Patient Time: Total time spent is greater than 50% in coordination of care (as documented) at patient's floor/unit and/or counseling patient: Time with patient: 25 - 35 minutes
[2025-06-22] MEDS: HYDROcodone/APAP 5/325 TABLET 2 TAB PO (08:35)
--- NOTE | 2025-06-22 08:58 | PC.NURSE ---
0525 Bakky Balloon removed by MD Auguste
[2025-06-22 12:00] VITALS: BP 94/64; PULSE 70; RESP 17; TEMP 36.8; O2SAT 98
--- NOTE | 2025-06-22 12:13 | PC.CC ---
Raissa NAVA received a consult for demise at 13 weeks from bedside KRYSTIAN Mccoy. Raissa NAVA, and Diana SANTILLAN made [id number] contact to complete initial assessment due to demise. At bedside was patient?s , Edmundo Andres whom patient provided consent to remain in the room during assessment. CASHIER PARKING LOT introduced herself, role in the agency, reason for visit, and discussed limits of confidentiality. Patient appeared alert and oriented to self, time, place, and situation. Patient made good eye contact. Patient was cooperative. Patient?s behavior appeared ordinary. No signs of delusions or hallucinations. Patient reports upon discharge she has emotional support from her , her mother, and [id number]. Per patient, she is going to seek mental health therapy at her primary clinic [facility] in [place]. CASHIER PARKING LOT inquired if patient wanted a referral to [facility] to which the patient reported no that she would attempt to get help at her primary clinic first. CASHIER PARKING LOT provided psychoeducation regarding baby blues and Post- Depression, as well as counseling groups at the [facility]. SW provided community resources: Warm Line and Crisis Line, and Grief Support Group information was also provided to patient. Patient reports she has two other children at home. Patient denied prior CWS and domestic violence. ELIJAH, provided update of resources provided to bedside KRYSTIAN Mccoy.
[2025-06-22] MEDS: ceFAZolin/D5W 2 GM IV 2 GM/100 ML BAG IV (14:21)
[2025-06-22 15:48] VITALS: BP 95/60; PULSE 69; RESP 18; TEMP 36.8; O2SAT 97
--- NOTE | 2025-06-22 17:48 | PD.LDPPPRG ---
Subjective Subjective Interval history: Patient is doing well since her balloon was removed this morning. She is ambulating, pain is controlled. She is not passing a lot of clots. She is ready to go home. She is afebrile. Exam Vital Signs Temp Pulse Resp BP Pulse Ox O2 Del Method 98.2 F 69 18 95/60 97 Room Air 06/22/25 15:48 06/22/25 15:48 06/22/25 15:48 06/22/25 15:48 06/22/25 15:48 06/22/25 15:48 Narrative Exam Patient is alert and oriented x 3 no apparent distress. Her is at bedside. All questions were answered. Objective Labs 06/22/25 05:24 Labs: Laboratory Results - last 24 hr 06/22/25 05:24 WBC 13.3 H D RBC 3.99 L Hgb 13.1 Hct 37.9 MCV 95 MCH 32.8 MCHC 34.6 RDW Std Deviation 44.6 Plt Count 190 Neut % (Auto) 84 H Lymph % (Auto) 11 [place] % (Auto) 5 Eos % (Auto) 0 Baso % (Auto) 0 Neut # (Auto) 11.1 H Lymph # (Auto) 1.4 [place] # (Auto) 0.7 Eos # (Auto) 0.0 Baso # (Auto) 0.0 Immature Gran # (Auto) 0.06 H Absolute Nucleated RBC 0.00 Immature Gran % 1 H Nucleated RBC % 0 PT 11.0 INR 1.0 APTT 27.4 Assessment & Plan Problem List (1) demise before 20 weeks with retention of fetus: Status: Inactive (2) Retained placenta with delivery, with complication: Problem details: Status post manual removal of placenta with curettage by Dr. Triplett. Postop day #1. Status: Acute (3) hemorrhage: Problem details: Patient had her bakri removed this morning. She has been doing well since. She is ready for discharge Status: Acute Time Spent With Patient Time: Total time spent is greater than 50% in coordination of care (as documented) at patient's floor/unit and/or counseling patient: Time with patient: 25 - 35 minutes
--- NOTE | 2025-06-22 17:49 | PD.LDDS ---
DS: Providers Provider Date of admission: 06/21/25 08:16 Primary care physician: Physician No Primary/Family Admitting Provider: Leo Triplett MD Attending Provider on Admission: Leo Triplett MD Consults: 06/21/25 19:33 Referral Routine Comment: Attending Provider on DC: Gin Auguste MD ([facility]) Discharging Provider: Gin Auguste MD ([facility]) Anticipated date of discharge: 06/22/25 DS: Diagnosis Discharge Diagnosis (1) hemorrhage: Status: Acute (2) Retained placenta with delivery, with complication: Status: Acute (3) IUFD at less than 20 weeks of gestation: Status: Acute Problem List Completed Was Problem List Reviewed/Reconciled?: Yes Summary/Hosp Course Brief History: 34-year-old 3 para 2-0-0-2 at 16 weeks presented to labor and delivery for induction of labor due to demise with gestation measuring 14 weeks and 5 days and she is currently 16 weeks estimated gestational age. Patient was referred to us from [facility] from Dr. Soto who was her primary SALON SALES CONSULTANT demise was confirmed through ultrasound in the emergency room. Please see history and physical for further details Patient went on to have a vaginal delivery of a demise followed by a manual removal of the placenta in the OR and placement of a Bakri balloon. This was by Dr. Triplett. Please see operative report for further details On postop day #1, the Bakri balloon and Bonner catheter was removed. Patient ambulated all day and was not dizzy or lightheaded she was not passing clots. Her predelivery hemoglobin was 14 her postdelivery hemoglobin was 13. She was sent home postop day #1 in stable condition. Peripartum Data Delivery Method: Normal Vaginal Delivery Episiotomy Description: None Laceration Description: see Delivery Summary Procedures: Procedures Operation Date: 06/21/25 18:45 Actual Procedure Side Surgeon p Dilatation & Curettage, Removal of Retained Placenta, Placement of Skyler Balloon Leo Triplett MD complications: none Status at Discharge Cognitive/behavioral status at discharge: Patient is alert and oriented x 3 in no apparent distress Functional status at discharge: independent ambulation Overall status at discharge: patient is progressing back to baseline Time Spent with Patient Time attestation: Total time spent providing and/or coordinating discharge services: Time spent: Less than 30 minutes Specific discharge activities: Pelvic rest x 4 weeks Exam Vital Signs Temp Pulse Resp BP Pulse Ox O2 Del Method 98.2 F 69 18 95/60 97 Room Air 06/22/25 15:48 06/22/25 15:48 06/22/25 15:48 06/22/25 15:48 06/22/25 15:48 06/22/25 15:48 Patient is alert and oriented x 3 in no apparent distress fundus is firm extremities show no cyanosis clubbing or edema Discharge Plan Plan Patient Disposition: HOME (Self Care) Disposition Comment: Stable Patient condition on transfer: Stable Prescriptions/Referrals Prescriptions/Med Rec: New ibuprofen 400 mg Tablet 800 mg PO Q8HR PRN (Reason: Pain Scale 4-6 (Moderate) Qty: 30 0RF No Action No Known Home Medications Referrals: No Primary/Family,Physician [Primary Care Provider] - Patient/Caregiver Discharge Instructions Discharge Activity: activity as tolerated Other Discharge Activity Instructions:: Pelvic rest x 4 weeks Other Discharge Diet Instructions: General Diet as tolerated Education Materials: Loss Grkristina, D and E, Understanding Miscarriage: Emotions, Understanding Miscarriage: Recovery, Discharge Instructions for ... Print Language: Danish Activity Restrictions/Additional Instructions: Pelvic rest x 6 weeks Stand Alone Forms: Donna Award Info., Patient Portal Info Letter Discharge Order Discharge Orders: Discharge (Routine); Ordered 06/22/25 Ordered By: Gin Auguste ([facility]) Planned Discharge Date 06/22/25 (1) hemorrhage Qualifiers: hemorrhage type: secondary hemorrhage Qualified Code(s): O72.2 - Delayed and secondary hemorrhage
[2025-06-24 06:46] LABS: PTT-LA Screen 32 seconds (< OR = 40); dRVVT Screen 37 seconds (< OR = 45)
== END 2025-06-22 18:45 | disposition home or self-care (01) | DRG 564 ==
LOC: S4SX 18:15 → S4NX 21:32
PROVIDERS: Admitting Provider Obstetrics & Gynecology; Visit Provider Obstetrics & Gynecology
PROC: 10D17Z9 Manual Extraction of Products of Conception, Retained, Via Natural or Artificial Opening (ICD-10-PCS; CPT 58120; principal; 2025-06-21 18:30)
DX: O02.1 Missed abortion (principal); O08.1 Delayed or excessive hemorrhage following ectopic and molar pregnancy
CPT/HCPCS: 36415; 59409; 80307; 85025; 85610; 85613; 85730; 86695; 86696; 86762; 86777; 86778; 86850; 86900; 86901; A4217; A4314; J0689; J0690; J1100; J1171; J1885; J2210; J2405; J2704; J3010; J3490; J7050; J7120; S0191; A9270